=== PATIENT | female | born 1945 | race Caucasian/White ===

== ENCOUNTER → 2023-11-15 13:12 | Outpatient (REF) | payer OTHER, SELFPAY | LOC: HWRAD 13:12 | PROVIDERS: ATTENDING PHYSICIAN Family Medicine | DX: K86.2 Cyst of pancreas (principal) | CPT/HCPCS: 74177; Q9967 ==

== ENCOUNTER 2023-11-30 10:52 | Emergency (ER) | payer OTHER, SELFPAY ==
[2023-11-30 11:00] VITALS: BP 145/74
[2023-11-30 11:13] VITALS: BMI 33.5
[2023-11-30] MEDS: DELTASONE 50 MG PO (12:32)
--- NOTE | 2023-11-30 12:37 | ED.MUSCINJ ---
HPI-Injury
General
Chief Complaint: Musculo-Skeletal Complaint
Source: patient
Exam Limitations: none
Time Seen by Provider: 11/30/23 12:05
History of Present Illness-Injury
Initial Injury comments:
78-year-old female presents complaining of pain that radiates from the posterior right buttock down her thigh into her foot. This started 4 to 5 days ago. Tends to be worse at night. She states this started after moving some furniture in her
house. No bowel or bladder dysfunction. No fevers. No other complaints at this time
Past History
Past History
ED Past Medical History: GERD, HTN, Hypercholesterolemia and NIDDM
ED Past Surgical History: Gynecological, Orthopedic and Other
Social History
Tobacco: Non-smoker
Alcohol: None
Drug: None
Personal:
Living: with family
Phy Exam
Physical Exam
Physical Exam:
General: Well appearing female NAD
HEENT: nc/AT
Heart: RRR, no mumurs
Lungs: CTA bilaterally
MSK: Tender to right posterior hip and lateral hip. Good ROM b/l LE.
Neuro: Good sensation and strength to b/l LE. B/L patellar reflexes 2+
Ext: no cyanosis or edema
Vascular: 2+ DP pulse bilaterally
Injury Course
Orders/Labs/Results
Orders:
Orders
11/30/23 12:25
Prednisone [Deltasone] 50 mg PO NOW STA
MDM/Problems Addressed
Differential Diagnosis Includes:
Leg pain that radiates from the back posterior hip on the right side beyond the knee into the foot. There is no neurologic deficit. No red flags to suggest cauda equina. No fever to consider infectious source. Suspect radiculopathy. Will treat
with prednisone. Considered imaging however not indicated at this time.
*Critical Care Note
Total Time (30-74mins, 75-104mins- exclusive of procedures): Not Applicable
ED Attending Note
-
Portions of this chart may have been created with voice recognition software.� Occasional wrong word or��sound alike� substitutions may have occurred due to the inherent limitations of voice recognition software.
Discharge Plan
Departure
Patient Disposition: Home (Routine Discharge)
Date of Disposition: 11/30/23
Time of Disposition: 12:51
Patient with high blood pressure during this ER visit?: No
Discharge Problem:
Acute lumbar radiculopathy
Instructions: Muscle and Bone Pain (DC)
Prescriptions:
New
prednisone 10 mg Tablet
See Rx Instructions .ROUTE .COMPLEX Qty: 30 0RF
Rx Instructions:
Take By Mouth:
40 mg daily x3 days, 30 mg daily x3 days,
20 mg daily x3 days, 10 mg daily x3 days.
cyclobenzaprine 5 mg tablet
5 mg PO TID PRN (Reason: muscle spasm) Qty: 10 0RF
Referrals:
Chichi Colmenares, [Family Provider] -
Nahum Silva MD [Active] -
Activity Restrictions/Additional Instructions:
Use steroid as directed. Use muscle relaxer as needed for spasm. Return here if worse otherwise follow-up with orthopedic
Interventions
Interventions:
*Risk Screen - Suicide Last Done: 11/30/23 11:02
*General Assessment Last Done: 11/30/23 11:02
*Neglect/Abuse Screening Last Done: 11/30/23 11:02
ED- Fall Risk Assessment Last Done: 11/30/23 11:13
*ED COVID-19 Vaccine History Last Done: 11/30/23 11:13
ED-Musculoskeletal Assessment Last Done: 11/30/23 11:13
Discharge Date and Time
Print Language: TAJIK
[2023-11-30 13:18] VITALS: BP 145/75
== END 2023-11-30 13:19 | disposition home or self-care (01) ==
LOC: EMR 10:52
PROVIDERS: EMERGENCY PHYSICIAN Student in an Organized Health Care Education/Training Program; FAMILY PHYSICIAN Family Medicine
DX: M54.16 Radiculopathy, lumbar region (principal)
CPT/HCPCS: 99283